=== PATIENT | male | born 1960 | race Caucasian/White ===

== ENCOUNTER 2018-03-27 09:12 | Emergency (ER) | payer SELFPAY ==
--- OUTSIDE RECORDS SUMMARY | 2018-03-27 09:24 | XMS REPORT ---
:1960 External Reference #:[id number] Author Organization [facility] Address [address] [place] [address] [place] [address] Phone [phone] Care Team Providers Name Role Phone Lavern Pfeiffer M.D. 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 Payers Type Date Identification Numbers Payment Provider Subscriber Commercial Effective: Policy Number: [id number] PIERO Torres 2013 PayID: [id number] [address] [place] [address] Problems Description No Information Family History Date Family Member(s) Problem(s) Comments General Non Contributory Social History Type Date Description Comments Lives With friends Occupation [employer] Smokeless Tobacco Never Used Smokeless Tobacco ETOH Use Occasionally consumes beer 6-12 per week Smoking Patient is a current smoker, smokes less than 1 pk/day every day Exercise Type/Frequency Does not exercise Allergies, Adverse Reactions, Alerts Date Description Reaction Status Severity Comments 10/23/2013 NKDA active Medications Medication Date Status Form Strength Qnty SIG Indications Ordering Provider Lisinopril Active 10mg Unknown Oxycodone HCL - Hx Unknown 11/29/2013 Naproxen - Hx Unknown 11/29/2013 Vital Signs Date Vital Result Comment 01/17/2014 Height 72 inches 6'0" Weight 230.00 lb Heart Rate 76 /min BMI (Body Mass Index) 31.2 kg/m2 12/13/2013 Height 72 inches 6'0" Weight 230.00 lb Heart Rate 100 /min BP Systolic 186 mmHg BP Diastolic 121 mmHg BMI (Body Mass Index) 31.2 kg/m2 11/29/2013 Height 72 inches 6'0" Weight 230.00 lb Heart Rate 72 /min BMI (Body Mass Index) 31.2 kg/m2 11/08/2013 Height 72 inches 6'0" Weight 230.00 lb Heart Rate 105 /min BP Systolic 199 mmHg BP Diastolic 126 mmHg BMI (Body Mass Index) 31.2 kg/m2 11/08/2013 Height 72 inches 6'0" Weight 225.00 lb Heart Rate 100 /min BMI (Body Mass Index) 30.5 kg/m2 10/23/2013 Height 72 inches 6'0" Weight 225.00 lb Heart Rate 104 /min BP Systolic 185 mmHg BP Diastolic 130 mmHg Body Temperature 100.3 F BMI (Body Mass Index) 30.5 kg/m2 Results Description No Information Procedures Date CPT Code Description Status 02/27/2018 50020 ECHO Transthorasic Realtime 2D W Doppler & Color Flow Completed Hosp 01/17/2014 75698 Rad Exam; Ankle Comp Completed 01/17/2014 42636 Xray Knee 3 Views Completed 12/13/2013 91734 Rad Exam; Ankle Comp Completed 11/29/2013 73536 Rad Exam; Ankle Comp Completed 11/08/2013 35288 Rad Exam; Ankle Comp Completed 11/08/2013 74760 Short Leg Cast Completed 10/23/2013 99301 Rad Exam; Ankle Comp Completed 10/23/2013 19752 closed treatment of medial malleolus fx w/o Completed maniplulation Plan of Care No Information Available
--- OUTSIDE RECORDS SUMMARY | 2018-03-27 09:24 | XMS REPORT ---
:1960 External Reference #:[id number] Author Organization [facility] Address [address] [place] [address] [place] [address] Phone [phone] Care Team Providers Name Role Phone Lavern Pfeiffer M.D. 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 Payers Type Date Identification Numbers Payment Provider Subscriber Commercial Effective: Policy Number: [id number] PIERO Torres 2013 PayID: [id number] [address] [place] [address] Problems Description No Information Family History Date Family Member(s) Problem(s) Comments General Non Contributory Social History Type Date Description Comments Lives With friends Occupation [employer] Smokeless Tobacco Never Used Smokeless Tobacco ETOH [...] Information Procedures Date CPT Code Description Status 01/17/2014 87506 Rad Exam; Ankle Comp Completed 01/17/2014 85490 Xray Knee 3 Views Completed 12/13/2013 99932 Rad Exam; Ankle Comp Completed 11/29/2013 13621 Rad Exam; Ankle Comp Completed 11/08/2013 71947 Rad Exam; Ankle Comp Completed 11/08/2013 09772 Short Leg Cast Completed 10/23/2013 91934 Rad Exam; Ankle Comp Completed 10/23/2013 72671 closed treatment of medial malleolus fx w/o Completed maniplulation Plan of Care No Information Available
--- OUTSIDE RECORDS SUMMARY | 2018-03-27 09:24 | XMS REPORT ---
:1960 External Reference #:[id number] [facility] Address [address] [place] [address] [place] [address] Phone [phone] Care Team Providers Name Role Phone Patient's Choice Primary Care Physician Unavailable Payers Type Date Identification Numbers Payment Provider Subscriber Commercial Effective: Policy Number: [id number] [employer] Paul Torres 2013 Expires: 2014 PayID: [id number] [address] [address] [place] [address] Medigap Part B Policy Number: [id number] Blue [employer] Ppo Paul Torres PayID: [id number] [address] [address] TorstenESA pizano [address] Problems Date Description Provider Status Onset: 03/08/2018 Screening for malignant neoplasm of colon Robson Henley MD Active Onset: 03/08/2018 Constipation Robson Henley MD Active Onset: 03/08/2018 Bifascicular block Robson Henley MD Active Onset: 03/08/2018 Tobacco user Robson Henley MD Active Onset: 03/08/2018 Hyperlipidemia Robson Henley MD Active Onset: 03/08/2018 Electrocardiogram abnormal Robson Henley MD Active Onset: 03/08/2018 Essential hypertension Robson Henley MD Active Onset: 03/08/2018 Transient cerebral ischemia Robson Henley MD Active Family History Date Family Member(s) Problem(s) Comments General Non Contributory Social History Type Date Description Comments Lives With friends Occupation [employer] Smokeless Tobacco Never Used Smokeless Tobacco ETOH Use Occasionally consumes beer 6-12 per week Smoking Patient is a former smoker Exercise Type/Frequency Does not exercise Allergies, Adverse Reactions, Alerts Date Description Reaction Status Severity Comments 10/23/2013 NKDA active Medications Medication Date Status Form Strength Qnty SIG Indications Ordering Provider Lisinopril 03/08/ Active Tablets 20mg 30tabs Take 1 tab I10 Robson 2018 daily. MD Kale Colfrancisco 03/08/ Active Capsules 100mg 60caps Take 1 tab K59.00 Robson 2018 twice a day MD Kale Aspirin 81 Low / Active Chewtabs 81mg 1 by mouth Unknown Dose 0000 every day Atorvastatin 00/ Active Tablets 80mg 1 by mouth Unknown Calcium 0000 every day Metoprolol / Active Tablets 25mg 1 by mouth Unknown Tartrate 0000 twice a day Nicotine / Active Patches 14mg/24HR 1 apply Unknown 0000 24HR patch topically every 24 hours. x 2 weeks then 7mg patch every 24 hours Oxycodone HCL // Hx Unknown - 2013 Naproxen / Hx Unknown - 2013 Lisinopril / Hx 10mg 1 tab daily Unknown - 2017 Vital Signs Date Vital Result Comment 03/08/2018 Weight 233.00 lb Heart Rate 72 /min BP Systolic Sitting 147 mmHg L average cuff; 132/94 R average cuff BP Diastolic Sitting 101 mmHg L average cuff; 132/94 R average cuff Respiratory Rate 18 /min Body Temperature 98.7 F Pain Level 0 O2 % BldC Oximetry 96 % 01/17/2014 Height 72 inches 6'0" Weight 230.00 [...] BMI (Body Mass Index) 30.5 kg/m2 Results Test Date Test Result H/L Range Note Order 03/08/2018 Stress Test, Pharmacologic Nuclear <pending> (Lexiscan) Procedures Date CPT Code Description Status 02/27/2018 48756 ECHO Transthorasic Realtime 2D W Doppler & Color Flow Completed Hosp 02/27/2018 06113 EKG, Interpretation Only Completed 01/17/2014 39598 Rad Exam; Ankle Comp Completed 01/17/2014 56507 Xray Knee 3 Views Completed 12/13/2013 85708 Rad Exam; Ankle Comp Completed 11/29/2013 01164 Rad Exam; Ankle Comp Completed 11/08/2013 70422 Rad Exam; Ankle Comp Completed 11/08/2013 15729 Short Leg Cast Completed 10/23/2013 44864 Rad Exam; Ankle Comp Completed 10/23/2013 05204 closed treatment of medial malleolus fx w/o Completed maniplulation Encounters Type Date Location Provider CPT E/M Dx Office Visit 03/08/2018 10:30a [facility] [place] [address] G45.9 [facility] I10 R94.31 E78.5 I45.2 F17.210 K59.00 Z12.11 Office Visit 02/27/2018 2:25p [facility] Meng Lundberg [address]12 R94.31 Karen I10 E78.5 I45.2 Plan of Care Future Appointment(s):04/06/2018 2:00 pm - Edouard Nguyen M.D. at [facility] Internal Medicine [facility]03/08/2018 - Robson Henley MDG45.9 Transient cerebral ischemic attack, unspecifiedComments:Continue lipitorContinue aspirinContinue Blood pressure control:--Continue metoprolol 25mg BID--Continue lisinopril 10mg rineeV82 Essential (primary) hypertensionNew Medication:Lisinopril 20 mgComments :Continue metoprolol 25mg BIDContinue lisinopril 10mg ifankK65.31 Abnormal electrocardiogram [ECG] [EKG]Comments:Nuclear Stress testE78.5 Hyperlipidemia, unspecifiedComments:Continue iwchostF57.2 Bifascicular mdlfwF16.210 Nicotine dependence, cigarettes, uncomplicatedComments:Cold turkey is working so far. Nicotine patch made nausea.K59.00 Constipation, unspecifiedNew Medication: Colace 100 mgZ12.11 Encounter for screening for malignant neoplasm of colon
--- OUTSIDE RECORDS SUMMARY | 2018-03-27 09:25 | XMS REPORT ---
:1960 External Reference #:[id number] Author Organization [facility] Address [address] [place] [address] [place] [address] Phone [phone] Care Team Providers Name Role Phone Lavern Pfeiffer M.D. 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 Payers Type Date Identification Numbers Payment Provider Subscriber Commercial Effective: Policy Number: [id number] PIERO Torres 2013 PayID: [id number] [address] [place] [address] Problems Description No Information Family History Date Family Member(s) Problem(s) Comments General Non Contributory Social History Type Date Description Comments Lives With friends Occupation [employer] Smokeless Tobacco Never Used Smokeless Tobacco ETOH [...] Procedures Date CPT Code Description Status 01/17/2014 94682 Rad Exam; Ankle Comp Completed 01/17/2014 76512 Xray Knee 3 Views Completed 12/13/2013 35166 Rad Exam; Ankle Comp Completed 11/29/2013 40771 Rad Exam; Ankle Comp Completed 11/08/2013 93125 Rad Exam; Ankle Comp Completed 11/08/2013 58466 Short Leg Cast Completed 10/23/2013 75780 Rad Exam; Ankle Comp Completed 10/23/2013 42246 closed treatment of medial malleolus fx w/o Completed maniplulation Plan of Care No Information Available
[2018-03-27 09:50] VITALS: BP 150/94
--- NOTE | 2018-03-27 10:25 | UC ---
Lower Extremity/Ankle HPI - HPI Summary HPI Summary: This is Sonia arita, documenting for attending Kumar Lim M.D. Pt is a 58 y/o M who presents to [facility] c/o L knee pain. Pt reports that at 0745 this morning while at work he was putting items in a cooler. His left foot was on a ramp with nonslip rubber on it and when he turned to the left, his foot didn't turn but his knee did. States that the knee "just popped" without a related fall. Associated pain is mild, ranked 5/10, aggravated by twisting the knee. Confirms he is able to ambulate and bear weight. Denies swelling. Pt reports he has always had "bad knees" and presents due to concerns of his history. Tore a ligament in the right knee with following surgery when he was much younger. Does not currently have a PCP, but has an appointment with Dr. Nguyen on 04/06. - History of Current Complaint Chief Complaint: UCLowerExtremity Stated Complaint: KNEE INJURY Time Seen by Provider: 03/27/18 10:19 Hx Obtained From: Patient Onset/Duration: Lasting Hours, Still Present Severity Currently: Moderate Pain Intensity: 5 Pain Scale Used: 0-10 Numeric Aggravating Factor(s): Other - Twisting Alleviating Factor(s): Nothing Able to Bear Weight: Yes - Allergies/Home Medications Allergies/Adverse Reactions: Allergies Allergy/AdvReac Type Severity Reaction Status Date / Time No Known Allergies Allergy Verified 03/27/18 09:51 PMH/Surg Hx/FS Hx/Imm Hx Cardiovascular History: Hypertension Neurological History: TIA - Surgical History Surgical History: None - Family History Known Family History: Negative: Hypertension, Diabetes - Social History Alcohol Use: None Substance Use Type: Marijuana Smoking Status (MU): Former Smoker Type: Cigarettes Amount Used/How Often: 1 PPD Length of Time of Smoking/Using Tobacco: 30+ years Have You Smoked in the Last Year: Yes - Immunization History Most Recent Influenza Vaccination: never Most Recent Pneumonia Vaccination: never Review of Systems Constitutional: Negative Skin: Negative Eyes: Negative ENT: Negative Respiratory: Negative Cardiovascular: Negative Gastrointestinal: Negative Genitourinary: Negative Motor: Negative Neurovascular: Negative Musculoskeletal: Arthralgia - L knee pain Neurological: Negative Psychological: Negative All Other Systems Reviewed And Are Negative: Yes - Comments Additional Review of Systems Comments: NEGATIVE: Swelling Physical Exam - Summary Physical Exam Summary: General: well-appearing, no pain distress Skin: warm, color reflects adequate perfusion, dry Head: normal Eyes: EOMI, FELTON ENT: normal Neck: supple, nontender Respiratory: CTA, breath sounds present Cardiovascular: RRR Musculoskeletal: Left knee exam reveals minimal effusion, pt reports pain with anterior and posterior drawer test, he is tender to palpation on the medial anterior joint line, he is not tender on the collateral ligaments, the patella is nontender, complained of pain with [facility]'s on the medial aspect of the knee, strength/ROM intact Neurological: sensory/motor intact, A&O x3 Psychological: affect/mood appropriate Triage Information Reviewed: Yes Vital Signs: Initial Vital Signs Temp 98.9 F 03/27/18 09:47 Pulse 70 03/27/18 09:47 Resp 12 03/27/18 09:47 BP 150/94 03/27/18 09:47 Pulse Ox 97 03/27/18 09:47 Vital Signs Reviewed: Yes Diagnostics - Radiology Knee XR Xray Interpretation: No Acute Changes - Normal knee radiograph as described above. If the patient's symptoms persist, follow-up imaging is recommended. Physician reviewed this report. Radiology Interpretation Completed By: Radiologist Lower Extremity Course/Dx - Course Course Of Treatment: Medications reviewed. Allergies noted. POSSIBLE INTERNAL DERANGEMENT. F/U SPORTS MEDICINE/ORTHOPEDICS; RECHECK SOONER IF WORSE. - Differential Dx/Diagnosis Provider Diagnoses: LEFT KNEE SWELLING Discharge - Sign-Out/Discharge Documenting (check all that apply): Patient Departure - Discharge - Discharge Plan Condition: Stable Disposition: HOME Patient Education Materials: Knee Sprain (ED), Swollen Knee Joint (ED), Knee Pain (ED) Forms: *Work Release Referrals: [facility] [Outside] Pablo Fernandes [Medical Doctor] - Lauren Randall MD [Medical Doctor] - Andrew Tejada MD [Medical Doctor] - Edouard Nguyen MD [Primary Care Provider] - Additional Instructions: FOLLOW UP WITH EITHER SPORTS MEDICINE OR ORTHOPEDICS. GET RECHECKED FOR ANY WORSENING OF YOUR CONDITION OR QUESTIONS OR CONCERNS. - Billing Disposition and Condition Condition: STABLE Disposition: Home
--- NOTE | 2018-03-27 10:57 | RAD ---
INDICATION: Medial left knee pain after twisting injury COMPARISON: None TECHNIQUE: 4 view radiograph of the left knee. FINDINGS: The visualized bones are well-corticated and properly aligned. The joint spaces are properly maintained. There is no radiographic evidence of joint effusion. There is no acute fracture, dislocation or other focal bony abnormality. IMPRESSION: Normal knee radiograph as described above. If the patient's symptoms persist, follow-up imaging is recommended.
== END 2018-03-27 11:20 | disposition home or self-care (01) ==
LOC: UCEAST 09:12
DX: M25.462 Effusion, left knee (principal); M25.562 Pain in left knee; I10 Essential (primary) hypertension; Z87.891 Personal history of nicotine dependence
CPT/HCPCS: 99211; G0463